=== PATIENT | female | born 1945 | race Hispanic/Latino ===

== ENCOUNTER 2018-05-27 16:44 | Emergency (ER) | payer MEDICARE, OTHER ==
[~2018-05-27] VITALS: Ht 139.7 cm; Wt 83.9 kg
--- OUTSIDE RECORDS SUMMARY | 2018-05-27 16:46 | XMS REPORT | Summary of Care ---
Author Author [facility] Organization [facility] Address Unknown Phone Unavailable Encounter HQ Encntr_alias(FIN) [id number] Date(s): 06/09/17 - 06/10/17 [facility] [address], [address] [place] [address] [phone] Vital Signs No data available for this section Problem List Condition Effective Dates Status Health Status Informant Acquired foot Active deformity(Confirmed) Benign Active hypertension(Confirm ed) Hyperlipidemia(Confi Active rmed) Osteoporosis(Confirm Active ed) Unstable Active gait(Confirmed) Varicose veins of Active both lower extremities(Confirme d) Ulcer of varicose Active vein of left leg(Confirmed) Vitamin D Active deficiency(Confirmed ) Allergies, Adverse Reactions, Alerts Substance Reaction Severity Status NKDA Active Medications No data available for this section Results No data available for this section Immunizations Given and Recorded Vaccine Date Status Refusal Reason pneumococcal 23-valent vaccine1 05/25/17 Given 1Result Comment: Patient waited 15 min with no reaction. Procedures Procedure Date Related Diagnosis Body Site Status Bone density scan1 06/02/17 Completed Mammogram2 06/02/17 Completed Hysterectomy Completed 1Osteoporosis. 2There is no mammographic evidence of malignancy. A 1 year screening mammogram is recommended. Social History Social History Type Response Substance Abuse Use: None. Alcohol Never Smoking Status Never smoker; Exposure to Tobacco Smoke None; Cigarette Smoking Last 365 Days No; Reg Smoking Cessation Counseling No entered on: 05/25/17 Assessment and Plan No data available for this section
--- OUTSIDE RECORDS SUMMARY | 2018-05-27 16:46 | XMS REPORT | Summary of Care ---
Author Author [facility] Organization [facility] Address Unknown Phone Unavailable Encounter HQ Encntr_alimike(FIN) [id number] Date(s): 04/13/18 - 04/13/18 [facility] [address], [address] [place], [place] [address]- [phone] Attending Physician: Rufina Nolan MD Vital Signs No data available for this [...] Reg Smoking Cessation Counseling No entered on: 07/06/17 Assessment and Plan No data available for this section
--- OUTSIDE RECORDS SUMMARY | 2018-05-27 16:46 | XMS REPORT | Summary of Care ---
Author Author [facility] Organization [facility] Address Unknown Phone Unavailable Encounter TIM Higgins(FIN) [id number] Date(s): 05/24/18 - 05/24/18 [facility] [address] [phone] Discharge Disposition: Home or Self Care Attending Physician: Rufina Nolan MD Vital Signs Most recent to 1 2 oldest [Reference Range]: Height 149.86 cm (05/24/18 2:16 PM) Temperature Oral 98.3 DegF [96.4-99.1 DegF] (05/24/18 2:16 PM) Blood Pressure 169/78 mmHg 192/87 mmHg [90-140/60-90 mmHg] *HI* *HI* (05/24/18 6:59 PM) (05/24/18 2:16 PM) Respiratory Rate 16 BRMIN [14-20 BRMIN] (05/24/18 2:16 PM) Peripheral Pulse 71 bpm Rate [60-100 bpm] (05/24/18 2:16 PM) Weight 61.364 kg (05/24/18 2:16 PM) Body Mass Index 27.32 m2 (05/24/18 2:16 PM) Problem List Condition Effective Dates Status Health Status Informant Acquired foot Active deformity(Confirmed) Benign Active hypertension(Confirm ed) Hyperlipidemia(Confi Active rmed) Osteoporosis(Confirm Active ed) Unstable Active gait(Confirmed) Varicose veins of Active both lower extremities(Confirme d) Ulcer of varicose Active vein of left leg(Confirmed) Vitamin D Active deficiency(Confirmed ) Allergies, Adverse Reactions, Alerts Substance Reaction Severity Status NKDA Active Medications alendronate 70 mg oral tablet 70 mg=1 tab, PO, Q7D, with 6 to 8 ounces plain water, at least 30 minutes before first food, beverage, or medication of the day, # 12 tab, 3 Refill(s), Pharmacy: [email or web address] [id number], Please trinidadian label Start Date: 05/24/18 Status: Ordered alendronate 70 mg oral tablet 70 mg=1 tab, PO, Q7D, with 6 to 8 ounces plain water, at least 30 minutes before first food, beverage, or medication of the day, # 12 tab, 3 Refill(s), Pharmacy: [facility] [address] Start Date: 05/24/18 Stop Date: 05/24/18 Status: Discontinued diclofenac sodium 50 mg oral enteric coated, delayed-release tablet 50 mg=1 tab, PO, BID, # 60 tab, 0 Refill(s), Pharmacy: [facility] [address] 6 Start Date: 05/24/18 Status: Ordered enalapril 20 mg oral tablet 20 mg=1 tab, PO, Daily, # 90 tab, 0 Refill(s), Pharmacy: [facility] [address], increase enalapril 20 from 10 mg Start Date: 05/24/18 Status: Ordered tizanidine 2 mg oral tablet 4 mg=2 tab, PO, Q12H, PRN for muscle spasms, # 40 tab, 0 Refill(s), Pharmacy: [facility] [address] Start Date: 05/24/18 Status: Ordered Results No data available for this section [...] Reg Smoking Cessation Counseling No entered on: 05/24/18 Assessment and Plan No data available for this section
--- OUTSIDE RECORDS SUMMARY | 2018-05-27 16:46 | XMS REPORT | Continuity of Care Document ---
Author Author [facility] Address Unknown Phone Unavailable Problems Problem Status Onset Date Classification Date Reported Comments Source (BLE) DX: I83.023=VARICOSE VEINS OF LEF Active 07/03/2017 [facility] Encounter for screening mammogram for malignant neoplasm of breast 06/10/2017 09/08/2017 [facility] ROUTINE SCREENING BASELINE Active 05/25/2017 [facility] Age-related osteoporosis without current pathological fracture 09/08/2017 [facility] Acquired foot deformity Active Problem 05/26/2018 [facility] Benign hypertension Active Problem 05/26/2018 [facility] Hyperlipidemia Active Problem 05/26/2018 [facility] Osteoporosis Active Problem 05/26/2018 [facility] Unstable gait Active Problem 05/26/2018 [facility] Varicose veins of both lower extremities Active Problem 05/26/2018 [facility] Ulcer of varicose vein of left leg Active Problem 05/26/2018 [facility] Vitamin D deficiency Active Problem 05/26/2018 [facility] AGE-RELATED OSTEOPOROSIS W/O CURRENT PAT Active [facility] ENCNTR SCREEN MAMMOGRAM FOR MALIGNANT NE Active [facility] Medications Medication Details Route Status Patient Instructions Ordering Provider Order Date Source Alendronic acid 70 MG Oral Tablet 70 mg=1 tab, PO, Q7D, with 6 to 8 ounces plain water, at least 30 minutes before first food, beverage, or medication of the day, # 12 tab, 3 Refill(s), Pharmacy: [facility] [id number], Please amharic label Active 05/24/2018 [facility] enalapril 20 mg oral tablet 20 mg=1 tab, PO, Daily, # 90 tab, 0 Refill(s), Pharmacy: [facility] [id number], increase enalapril 20 from 10 mg Active 05/24/2018 [facility] Alendronic acid 70 MG Oral Tablet 70 mg=1 tab, PO, Q7D, with 6 to 8 ounces plain water, at least 30 minutes before first food, beverage, or medication of the day, # 12 tab, 3 Refill(s), Pharmacy: [facility] [address] Inactive 05/24/2018 [facility] tizanidine 2 mg oral tablet 4 mg=2 tab, PO, Q12H, PRN for muscle spasms, # 40 tab, 0 Refill(s), [facility] [address] Active 05/24/2018 [facility] diclofenac sodium 50 mg oral enteric coated, delayed-release tablet 50 mg=1 tab, PO, BID, # 60 tab, 0 Refill(s), [facility] [address] Active 05/24/2018 [facility] Acetaminophen 325 MG / tramadol hydrochloride 37.5 MG Oral Tablet 1 tab, PO, Q12H, PRN Pain, as needed for pain, X 20 day, # 40 tab, 0 Refill(s) Active 07/06/2017 [facility] enalapril 10 mg oral tablet 10 mg=1 tab, PO, Daily, # 90 tab, 1 Refill(s), [facility] [id number] Active 07/06/2017 [facility] Aspirin 81 MG Enteric Coated Tablet 81 mg=1 tab, PO, Daily, # 90 tab, 3 Refill(s), [facility] [address] Active 07/06/2017 [facility] Alendronic acid 70 MG Oral Tablet 70 mg=1 tab, PO, Q7D, with 6 to 8 ounces plain water, at least 30 minutes before first food, beverage, or medication of the day, # 12 tab, 3 Refill(s), [facility] [address] Active 07/06/2017 [facility] Calcium Carbonate 1500 MG / Cholecalciferol 400 UNT Oral Tablet 1 tab, PO, BID, # 180 tab, 1 Refill(s), [facility] [address] Active 06/03/2017 [facility] Alendronic acid 70 MG Oral Tablet 70 mg=1 tab, PO, Q7D, with 6 to 8 ounces plain water, at least 30 minutes before first food, beverage, or medication of the day, # 12 tab, 3 Refill(s), Pharmacy: [facility] [id number] No Longer Active 06/03/2017 [facility] Amoxicillin 500 MG / Clavulanate 125 MG Oral Tablet [Augmentin 500-mg] 1 tab, PO, Q12H, X 7 day, # 14 tab, 0 Refill(s), Pharmacy: [facility] [address] No Longer Active 05/25/2017 Medical [facility] Aspirin 81 MG Enteric Coated Tablet 81 mg=1 tab, PO, Daily, # 90 tab, 3 Refill(s), Pharmacy: [facility] [address] No Longer Active 05/25/2017 [facility] enalapril 10 mg oral tablet 10 mg=1 tab, PO, Daily, # 90 tab, 1 Refill(s), Pharmacy: [facility] [id number] No Longer Active 05/25/2017 [facility] ampicillin 500 mg oral capsule 500 mg=1 cap, PO, QID, # 28 cap, 0 Refill(s) Inactive 05/25/2017 [facility] enalapril 10 mg oral tablet 10 mg=1 tab, PO, Daily, # 90 tab, 1 Refill(s) Inactive 05/25/2017 [facility] Allergies, Adverse Reactions, Alerts Substance Category Reaction Severity Reaction type Status Date Reported Comments Source Immunizations Immunization Date Given Site Status Last Updated Comments Source pneumococcal 23-valent vaccine<sup>1</sup> 05/25/2017 Left Deltoid completed [facility] Result Comment: Patient waited 15 min with no reaction. [facility] Results Order Name Results Value Reference Range Date Interpretation Comments Source Ext Lower Arterial bilat w pressure US Ext Lower Arterial bilat w pressure US Please refer to heart lab report, located under Vascular in [facility]. 07/07/2017 - - Electronically Signed by: Junaid Santillan 07/07/17 18:54 FINAL REPORT [facility] Bone Density Scan Bone Density Scan EXAM: DEXA BONE DENSITY STUDY HISTORY: 72 years year-old Female with - osteoporosis. COMPARISON: None TECHNIQUE: Lumbar spine and left hip bone mineral densities were measured using a [employer] MR Photoelectric[employer] Discovery dual x-ray absorptiometry system. FINDINGS: LUMBAR SPINE: L1-L4 average BMD is 0.598 g/cm2; T Score: -4.1. LEFT HIP: Femoral neck BMD: 0.337 g/cm2; T Score: -4.5. Total hip BMD: 0.509 g/cm2 ; T Score: -3.4. IMPRESSION: 1. Osteoporosis. The World Health Organization established that osteoporosis occurs at -2.5 SD below peak bone mass. (Peak bone mass occurs at 30 years of age in the axial skeleton (spine) and about 22 years of age in the femoral neck.) In addition, osteopenia (low bone mass) occurs at -1.0 SD to -2.5 SD below peak bone mass. Low bone mass is the single most accurate predictor for fracture risk. SL: [id number] 06/02/2017 - - Read by: Anamika Page MD Dictated Date/time: 06/02/17 15:35 Electronically Signed by: Anamika Page MD 06/02/17 15:37 FINAL REPORT [facility] Breast Mammo Scrn BRIGIDA incl CAD [place] Breast Mammo Scrn BRIGIDA incl CAD MA BILATERAL DIGITAL SCREENING MAMMOGRAM WITH CAD: 06/02/2017 CLINICAL: Routine screening. Current study was evaluated with a Computer Aided Detection (CAD) system. COMPARISON:Exam is read without the benefit of comparison films. Patient is unsure and/or cannot remember where and/or when her prior exam(s) was performed. TECHNIQUE: Mammographic views were obtained using digital acquisition. HotGrindsa Version 1.3 was utilized for computer aided detection. FINDINGS: The tissue of both breasts is almost entirely fat. Technologist indicates the exam is limited as the patient had difficulty standing and holding still during the exam. Best images obtained were submitted for review. There are benign vascular calcifications in the right breast. There also are benign vascular calcifications and calcifications in the left breast. No significant masses, calcifications, or other findings are seen in either breast. IMPRESSION: BENIGN RECOMMENDATION:There is no mammographic evidence of malignancy. A 1 year screening mammogram is recommended.(06/03/2018) SUMMARY: Prior mammograms would be of added benefit to document mcc stability. This aids in establishing benignity. The patient should make additional efforts to locate her prior exams. An addendum will be made if additional films are provided. This exam was interpreted at [id number] for [facility] Breast [facility]. Juli bello/everette:06/02/2017 15:22:22 Imposer(s): Courtney De La Cruz, [facility] letter sent: BI-RADS 1/2 Mammogram BI-RADS: 2 Benign 06/02/2017 - - Read by: Juli Thomas MD Dictated Date/time: 06/02/17 15:22 Electronically Signed by: Juli Thomas MD 06/02/17 15:22 FINAL REPORT [facility] Vital Signs Vital Sign Value Date Comments Source Systolic (mm Hg) 169 05/24/2018 [facility] Diastolic (mm Hg) 78 05/24/2018 [facility] BMI Calculated 27.32 05/24/2018 [facility] Weight 61.364 05/24/2018 [facility] Height 149.86 cm 05/24/2018 [facility] Systolic (mm Hg) 192 05/24/2018 [facility] Diastolic (mm Hg) 87 05/24/2018 [facility] Heart Rate 71 05/24/2018 [facility] Temperature Oral (F) 98.3 F 05/24/2018 [facility] Respitory Rate 16 05/24/2018 [facility] Height 149.86 cm 07/06/2017 [facility] Temperature Oral (F) 97.6 F 07/06/2017 [facility] Weight 65.455 07/06/2017 [facility] BMI Calculated 29.15 07/06/2017 [facility] Systolic (mm Hg) 137 07/06/2017 [facility] Diastolic (mm Hg) 70 07/06/2017 [facility] Heart Rate 95 07/06/2017 [facility] Respitory Rate 16 07/06/2017 [facility] Height 144.78 cm 05/25/2017 [facility] Heart Rate 56 05/25/2017 [facility] Respitory Rate 16 05/25/2017 [facility] Temperature Oral (F) 97.1 F 05/25/2017 [facility] BMI Calculated 29.49 05/25/2017 [facility] Weight 61.818 05/25/2017 [facility] Systolic (mm Hg) 135 05/25/2017 [facility] Diastolic (mm Hg) 79 05/25/2017 [facility] Encounters Location Location Details Encounter Type Encounter Number Reason For Visit Attending Provider ADM Date DC Date Status Source Outpatient [id number] RUFINA COATS 05/25/2017 Active [facility] Outpatient [id number] Rufina Coats 05/25/2017 05/26/2017 Medical Group [facility] Outpatient [id number] Rufina Coats 06/02/2017 06/03/2017 [facility] Primary [facility] Phone Message [id number] 06/09/2017 06/11/2017 [facility] Group Outpatient [id number] RUFINA COATS 07/06/2017 Active [facility] Primary [facility] Outpatient [id number] Rufina Coats 07/06/2017 07/07/2017 [facility] Outpatient [id number] Bill Goldberg 07/07/2017 07/08/2017 [facility] Outpatient [id number] RUFINA PAULY 01/01/2018 Active [facility] Outpatient [id number] RUFINA COATS 04/13/2018 Active [facility] Pre-Reg [id number] Rufina Pauly 04/13/2018 04/13/2018 Medical [facility] Outpatient [id number] Rufina Coats 05/24/2018 Active [facility] Outpatient [id number] Rufina Coats 05/24/2018 05/25/2018 Medical [facility] Outpatient [id number] RUFINA COATS 06/08/2018 Active [facility] Outpatient [id number] Rufina Coats 06/18/2018 Active [facility] Procedures Procedure Code Date Perfomer Comments Source Bone density scan<sup>1</sup> [id number] 06/02/2017 Osteoporosis. [facility] Mammogram<sup>2</sup> [id number] 06/02/2017 There is no mammographic evidence of malignancy. A 1 year screening mammogram is recommended. [facility] Bone density scan<sup>1</sup> [id number] 06/02/2017 Osteoporosis. [facility] Mammogram<sup>2</sup> [id number] 06/02/2017 There is no mammographic evidence of malignancy. A 1 year screening mammogram is recommended. [facility] Hysterectomy [id number] [facility] Hysterectomy [id number] [facility]
--- OUTSIDE RECORDS SUMMARY | 2018-05-27 16:46 | XMS REPORT | Summary of Care ---
Author Author [facility] Organization [facility] Address Unknown Phone Unavailable Encounter HQ Gisela(BRANDY) [id number] Date(s): 06/02/17 - 06/02/17 [facility] [address] [place] [address]- [phone] Discharge Disposition: Home or Self Care Attending Physician: Rufina Nolan MD Referring Physician: Rufina Nolan MD Vital Signs No [...]
--- OUTSIDE RECORDS SUMMARY | 2018-05-27 16:46 | XMS REPORT | Summary of Care ---
Author Author [facility] Organization [facility] Address Unknown Phone Unavailable Encounter TIM Higgins(BRANDY) [id number] Date(s): 07/06/17 - 07/06/17 [facility] [address], [address] [place], [place] [address]- [phone] Discharge Disposition: Home or Self Care Attending Physician: Rufina Nolna MD Vital Signs Most recent to 1 oldest [Reference Range]: Height 149.86 cm (07/06/17 1:32 PM) Temperature Oral 97.6 DegF [96.4-99.1 DegF] (07/06/17 1:32 PM) Blood Pressure 137/70 mmHg [90-140/60-90 mmHg] (07/06/17 1:32 PM) Respiratory Rate 16 BRMIN [14-20 BRMIN] (07/06/17 1:32 PM) Peripheral Pulse 95 bpm Rate [60-100 bpm] (07/06/17 1:32 PM) Weight 65.455 kg (07/06/17 1:32 PM) Body Mass Index 29.15 m2 (07/06/17 1:32 PM) Problem List Condition Effective Dates Status Health Status Informant Acquired foot Active deformity(Confirmed) Benign Active hypertension(Confirm ed) Hyperlipidemia(Confi Active rmed) Osteoporosis(Confirm Active ed) Unstable Active gait(Confirmed) Varicose veins of Active both lower extremities(Confirme d) Ulcer of varicose Active vein of left leg(Confirmed) Vitamin D Active deficiency(Confirmed ) Allergies, Adverse Reactions, Alerts Substance Reaction Severity Status NKDA Active Medications acetaminophen-tramadol 325 mg-37.5 mg oral tablet 1 tab, PO, Q12H, PRN Pain, as needed for pain, X 20 day, # 40 tab, 0 Refill(s) Start Date: 07/06/17 Stop Date: 07/26/17 Status: Ordered alendronate 70 mg oral tablet 70 mg=1 tab, PO, Q7D, with 6 to 8 ounces plain water, at least 30 minutes before first food, beverage, or medication of the day, # 12 tab, 3 Refill(s), Pharmacy: [facility] [address] Start Date: 07/06/17 Status: Ordered aspirin 81 mg tablet, enteric coated 81 mg=1 tab, PO, Daily, # 90 tab, 3 Refill(s), Pharmacy: [facility] Start Date: 07/06/17 Status: Ordered enalapril 10 mg oral tablet 10 mg=1 tab, PO, Daily, # 90 tab, 1 Refill(s), Pharmacy: [facility] Start Date: 07/06/17 Stop Date: 01/02/18 Status: Ordered Results No data available for [...]
--- OUTSIDE RECORDS SUMMARY | 2018-05-27 16:46 | XMS REPORT | Summary of Care ---
Author Author [facility] Organization [facility] Address Unknown Phone Unavailable Encounter HQ Gisela(FIN) [id number] Date(s): 06/02/17 - 06/02/17 [facility] [address] [place] [address]- [phone] Encounter Diagnosis Encounter for screening mammogram for malignant neoplasm of breast (Final) - 06/09/17 Age-related osteoporosis without current pathological fracture (Final) - Discharge Disposition: Home or Self Care Attending [...]
--- OUTSIDE RECORDS SUMMARY | 2018-05-27 16:46 | XMS REPORT | Summary of Care ---
Author Author [facility] Organization [facility] Address Unknown Phone Unavailable Encounter HQ Gisela(BRANDY) [id number] Date(s): 07/07/17 - 07/07/17 [facility] [address] [place] [address]- Discharge Disposition: Home or Self Care Attending Physician: Bill Goldberg DPM Referring Physician: Bill Goldberg DPM Vital Signs No data available for this [...]
--- OUTSIDE RECORDS SUMMARY | 2018-05-27 16:46 | XMS REPORT | Summary of Care ---
Author Author [facility] Organization [facility] Address Unknown Phone Unavailable Encounter TIM Higgins(BRANDY) [id number] Date(s): 05/25/17 - 05/25/17 [facility] [address], [address] [place], [place] [address]- [phone] Discharge Disposition: Home or Self Care Attending Physician: Rufina Nolan MD Vital Signs Most recent to 1 oldest [Reference Range]: Height 144.78 cm (05/25/17 9:48 AM) Temperature Oral 97.1 DegF [96.4-99.1 DegF] (05/25/17 9:48 AM) Blood Pressure 135/79 mmHg [90-140/60-90 mmHg] (05/25/17 9:48 AM) Respiratory Rate 16 BRMIN [14-20 BRMIN] (05/25/17 9:48 AM) Peripheral Pulse 56 bpm Rate [60-100 bpm] *LOW* (05/25/17 9:48 AM) Weight 61.818 kg (05/25/17 9:48 AM) Body Mass Index 29.49 m2 (05/25/17 9:48 AM) Problem List Condition Effective Dates Status Health [...] day, # 12 tab, 3 Refill(s), Pharmacy: [facility] [id number] Start Date: 06/02/17 Stop Date: 07/06/17 Status: Discontinued ampicillin 500 mg oral capsule 500 mg=1 cap, PO, QID, # 28 cap, 0 Refill(s) Start Date: 05/25/17 Stop Date: 05/25/17 Status: Discontinued aspirin 81 mg tablet, enteric coated 81 mg=1 tab, PO, Daily, # 90 tab, 3 Refill(s), Pharmacy: [facility] [address] Start Date: 05/25/17 Stop Date: 07/06/17 Status: Discontinued Augmentin 500 mg oral tablet 1 tab, PO, Q12H, X 7 day, # 14 tab, 0 Refill(s), Pharmacy: [facility] [id number] Start Date: 05/25/17 Stop Date: 06/01/17 Status: Completed calcium-vitamin D 600 mg-400 intl units oral tablet 1 tab, PO, BID, # 180 tab, 1 Refill(s), Pharmacy: [facility] [address] Start Date: 06/02/17 Stop Date: 11/29/17 Status: Ordered enalapril 10 mg oral tablet 10 mg=1 tab, PO, Daily, # 90 tab, 1 Refill(s), Pharmacy: [facility] [address] Start Date: 05/25/17 Stop Date: 07/06/17 Status: Discontinued enalapril 10 mg oral tablet 10 mg=1 tab, PO, Daily, # 90 tab, 1 Refill(s) Start Date: 05/25/17 Stop Date: 05/25/17 Status: Discontinued Results No data available for this section [...]
[2018-05-27] MEDS ORDERED: CLONIDINE HCL 0.1 MG TAB PO ONE (19:00)
--- NOTE | 2018-05-27 20:50 | Diagnostic Imaging Report ---
EXAMINATION: Head CT HISTORY: Dizziness, severe hypertension, headache COMPARISON: None. TECHNIQUE: Multidetector axial images were obtained without contrast from the foramen magnum to the vertex . The images were reconstructed using brain and bone algorithms. Thin section brain images were reformatted into coronal and sagittal planes. Image quality: Motion/streaking artifact limits the evaluation of the skull base and posterior cranial fossa. Dose modulation, iterative reconstruction, and/or weight based adjustment of the mA/kV was utilized to reduce the radiation dose to as low as reasonably achievable. FINDINGS: Parenchyma: 1. 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 2. Cortical encephalomalacia in the left medial occipital lobe (years and the lungs are clear (, likely the sequela from remote infarct along the left PICA distribution. 3. A smaller focal area of mucosal cortical encephalomalacia is seen in the right inferior occipital lobe. 4. Few scattered mildly confluent periventricular white matter hypodensities, most likely nonspecific chronic microvascular ischemic changes. 5. Small chronic lacunar infarct in the left caudate head. 6. No mass or hemorrhage. No CT evidence of acute territorial vascular insult. Extra-axial spaces:No abnormal density. No extra-axial fluid collections Brain volume: Mild generalized bulge with mild bilateral medial temporal predominance, which conditioning patient with Alzheimer's disease, only in the appropriate clinical setting. Ventricles: No hydrocephalus or displacement. Arteries: No density suggestive of thrombus. Dural sinuses: No abnormal density. Extra-axial spaces: No abnormal density. Foramen magnum: No mass, Chiari malformation, or basilar invagination. Sella: No obvious mass. Paranasal/mastoid sinuses: Imaged portions unremarkable. Skull/Scalp: No lytic or blastic lesions. No fractures. IMPRESSION: 1. No acute intracranial abnormality, particularly no hemorrhage. 2. 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 3. Mild chronic microvascular ischemic changes and small left basal ganglia chronic lacunar infarct. 4. Mild generalized brain volume loss. 5. Multiple small parenchymal calcifications, likely the sequela from remote infection. Signed by: Dr. Madison Talbert M.D. on 05/27/2018 8:46 PM
--- NOTE | 2018-05-27 21:04 | Diagnostic Imaging Report ---
EXAM: CT Abdomen and Pelvis WITH contrast INDICATION: Abdominal pain COMPARISON: None. TECHNIQUE: Abdomen and pelvis were scanned utilizing a multidetector helical scanner from the lung base to the pubic symphysis after administration of IV contrast. Coronal and sagittal reformations were obtained. Routine protocol was performed. Scan was performed when during portal venous phase. IV CONTRAST: 100 mL of Isovue-300 ORAL CONTRAST: Water COMPLICATIONS: None RADIATION DOSE: Total DLP: 691.87 mGy*cm Estimated effective dose: (DLP x 0.015 x size factor) mSv CTDIvol has been reviewed. It is below the limits set by the Radiation Protocol Committee (RPC). Dose modulation, iterative reconstruction, and/or weight based adjustment of the mA/kV was utilized to reduce the radiation dose to as low as reasonably achievable. FINDINGS: LINES and TUBES: None. LOWER THORAX: Unremarkable HEPATOBILIARY: No focal hepatic lesions. No biliary ductal dilation. GALLBLADDER: Possible sludge in the gallbladder. No wall thickening. SPLEEN: No splenomegaly. PANCREAS: No focal masses or ductal dilatation. Fatty atrophy of the pancreas. ADRENALS: No adrenal nodules KIDNEYS/URETERS: Kidneys enhance symmetrically. No hydronephrosis. Several too small to characterize hypodensities in the kidneys likely due to small cysts.. No stones. GI TRACT: No abnormal distention, wall thickening, or evidence of bowel obstruction. Large hiatal hernia. Scattered diverticulosis without evidence of diverticulitis. PELVIC ORGANS/BLADDER: Unremarkable. LYMPH NODES: No lymphadenopathy. VESSELS: Scattered vascular calcification. PERITONEUM / RETROPERITONEUM: No free air or fluid. BONES: Scattered degenerative change. Likely old/chronic compression deformities involving several of the thoracic and lumbar vertebral bodies. SOFT TISSUES: Large fat-containing periumbilical hernia with mild adjacent inflammation. No evidence of bowel obstruction or strangulation. The neck of the hernia measures 1.7 cm. Nonspecific 2.8 cm coarse calcification in the posterior left lateral pelvis. Small bowel containing anterior lateral lower right abdominal/inguinal hernia. No evidence of bowel obstruction or strangulation. Large bowel containing anterior lateral lower left abdominal/inguinal hernia. No evidence of bowel obstruction or stricture. IMPRESSION: Large fat-containing periumbilical hernia with mild adjacent inflammation. No evidence of bowel obstruction or strangulation. The neck of the hernia measures 1.7 cm. Nonspecific 2.8 cm coarse calcification in the posterior left lateral pelvis. Small bowel containing anterior lateral lower right abdominal/inguinal hernia. No evidence of bowel obstruction or strangulation. Large bowel containing anterior lateral lower left abdominal/inguinal hernia. No evidence of bowel obstruction or stricture. Scattered diverticulosis without evidence of diverticulitis. Signed by: Dr. Alberto Grace M.D. on 05/27/2018 9:01 PM
[2018-05-27] MEDS ORDERED: MACROBID 100 M100 MG PO (22:31)
[2018-05-27 22:33] VITALS: BP 154/84
[2018-05-27] MEDS ORDERED: ULTRACET TABLE1 EACH PO (22:33)
== END 2018-05-27 22:38 | disposition home or self-care (01) ==
LOC: FSED 16:44
DX: I10 Essential (primary) hypertension (principal); G44.89 Other headache syndrome; R53.1 Weakness; R10.31 Right lower quadrant pain; N30.91 Cystitis, unspecified with hematuria
CPT/HCPCS: 70450; 74177; 87086; 87186; 99284